=== PATIENT | male | born 1995 | race Caucasian/White ===

== ENCOUNTER 2019-09-20 02:53 | Emergency (ER) | payer SELFPAY ==
[2019-09-20 02:58] VITALS: BP 160/97; PULSE 110; RESP 20; TEMP 36.6; O2SAT 98; BMI 24.2
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
[2019-09-20] MEDS: HYDROcodone-acetaminophen 5-325 mg Tablet 1 TAB PO (03:41)
--- NOTE | 2019-09-20 03:48 | PC.NURSE ---
[facility] department notified at this time and will be sending a deputy out to take a report.
[2019-09-20 04:39] VITALS: PULSE 86; RESP 16; O2SAT 96
== END 2019-09-20 04:40 | disposition home or self-care (01) ==
PROVIDERS: Emergency Provider Emergency Medicine
DX: S01.01XA Laceration without foreign body of scalp, initial encounter (principal); W26.8XXA Contact with other sharp object(s), not elsewhere classified, initial encounter
CPT/HCPCS: 12345; 70450; 99282; 99283

== ENCOUNTER 2020-02-10 11:31 | Emergency (ER) | payer SELFPAY ==
[2020-02-10 12:11] VITALS: BP 129/88; PULSE 97; RESP 14; TEMP 36.8; O2SAT 97; BMI 21.3
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
== END 2020-02-10 12:53 | disposition home or self-care (01) ==
PROVIDERS: Emergency Provider Nurse Practitioner Family
DX: S93.401A Sprain of unspecified ligament of right ankle, initial encounter (principal); S96.911A Strain of unspecified muscle and tendon at ankle and foot level, right foot, initial encounter; X50.1XXA Overexertion from prolonged static or awkward postures, initial encounter
CPT/HCPCS: 12345; 73610; 99281; 99282

== ENCOUNTER 2020-04-30 19:39 | Emergency (ER) | payer SELFPAY ==
[2020-04-30 19:55] VITALS: BP 163/102; PULSE 111; RESP 18; TEMP 36.5; O2SAT 97; BMI 21.3
--- NOTE | 2020-04-30 20:17 | XRR_ITS ---
PROCEDURE INFORMATION: Exam: XR Chest, 2 Views Exam date and time: 04/30/2020 8:35 PM Age: 24 years old Clinical indication: Chest pain; Type not specified; Additional info: Cp, blurred vision TECHNIQUE: Imaging protocol: XR of the chest Views: 2 views. COMPARISON: [place] Chest 1 [place] [id number] 12/07/2017 10:47 PM FINDINGS: Lungs: Unremarkable. No consolidation. Pleural space: Unremarkable. No pleural effusion. No pneumothorax. Heart/Mediastinum: Unremarkable. No cardiomegaly. Bones/joints: Unremarkable. XR/XR chest 2V* [id number] IMPRESSION: No acute findings.
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
[2020-04-30 22:50] VITALS: BP 152/84; PULSE 98; RESP 18; O2SAT 100
== END 2020-04-30 22:51 | disposition home or self-care (01) ==
PROVIDERS: Emergency Provider Physician Assistant
DX: R07.89 Other chest pain (principal)
CPT/HCPCS: 12345; 71046; 99281; 99282

== ENCOUNTER 2024-04-07 16:24 | Emergency (ER) | payer SELFPAY ==
[2024-04-07 16:29] VITALS: BP 129/71; PULSE 106; RESP 17; TEMP 36.3; O2SAT 97; BMI 30.2
--- NOTE | 2024-04-07 16:52 | CTR_ITS ---
PROCEDURE INFORMATION: Exam: CT Lumbar Spine Without Contrast Exam date and time: 04/07/2024 5:34 PM Age: 28 years old Clinical indication: Low back pain; Patient HX: Patient was moving furniture when had a sudden sharp pain in low back causing him to fall hitting head. TECHNIQUE: Imaging protocol: Computed tomography of the lumbar spine without contrast. Radiation optimization: All CT scans at this facility use at least one of these dose optimization techniques: automated exposure control; mA and/or kV adjustment per patient size (includes targeted exams where dose is matched to clinical indication); or iterative reconstruction. COMPARISON: No relevant prior studies available. RADIATION DOSE METRICS: Total DLP (mGy-cm): 714.08 FINDINGS: Bones/joints: No acute fracture. Normal alignment. L1-L2: No significant disc bulge or herniation. No severe spinal canal stenosis. No significant neural foraminal narrowing. L2-L3: No significant disc bulge or herniation. No severe spinal canal stenosis. No significant neural foraminal narrowing. L3-L4: No significant disc bulge or herniation. No severe spinal canal stenosis. No significant neural foraminal narrowing. L4-L5: No significant disc bulge or herniation. No severe spinal canal stenosis. No significant neural foraminal narrowing. L5-S1: No significant disc bulge or herniation. No severe spinal canal stenosis. No significant neural foraminal narrowing. Soft tissues: Unremarkable. CT/CT lumbar spine wo con* [id number] IMPRESSION: Unremarkable spine.
--- NOTE | 2024-04-07 16:54 | CTR_ITS ---
PROCEDURE INFORMATION: Exam: CT Head Without Contrast Exam date and time: 04/07/2024 5:31 PM Age: 28 years old Clinical indication: Injury or trauma; Blunt trauma (contusions or hematomas); Patient HX: Patient was moving furniture when had a sudden sharp pain in low back causing him to fall hitting head. ; Additional info: Head injury TECHNIQUE: Imaging protocol: Computed tomography of the head without contrast. Axial, coronal and sagittal reformatted images were created and reviewed. Radiation optimization: All CT scans at this facility use at least one of these dose optimization techniques: automated exposure control; mA and/or kV adjustment per patient size (includes targeted exams where dose is matched to clinical indication); or iterative reconstruction. COMPARISON: CT head wo con* [id number] 09/20/2019 3:13 AM RADIATION DOSE METRICS: Total DLP (mGy-cm): 1111.28 FINDINGS: Brain: No CT evidence of acute intracranial hemorrhage or acute territorial infarction. No significant mass effect or midline shift. Basal cisterns patent. Cerebral ventricles: Normal in size and configuration. Paranasal sinuses: Mild polypoid ethmoid and inferior frontal sinus mucosal thickening. No air-fluid levels. Mastoid air cells: Grossly unremarkable. Bones: Unremarkable. No acute fracture. Soft tissues: Grossly unremarkable. CT/CT head wo con* [id number]: 1. No CT evidence of acute intracranial pathology. 2. Additional findings, as above.
--- NOTE | 2024-04-07 16:54 | W.ED.BACK ---
HPI - Back Pain/Injury General: Chief Complaint: Back Pain/Injury Stated Complaint: back injury Time Seen by Provider: 04/07/24 16:26 Source: patient Mode of arrival: ambulatory Limitations: no limitations History of Present Illness: 28-year-old male states has been having some low back pain for a month he states that today he was moving furniture and states that he started having severe spasms in his low back and felt like it froze up. He states it hurts to ambulate and is very tender to palpation. He is able to ambulate ambulated the room denies any bowel or bladder incontinence. He states his pain sharp and rates it a 7 out of 10 he states when he had fell when it froze up he did hit his head he has been drinking alcohol today as well. Associated symptoms: Deny abdominal pain, chills, fever(s), nausea or vomiting Related Data Previous Rx's Medication Instructions Recorded methocarbamol 750 mg tablet 750 mg PO Q6H PRN spasms #20 tabs 04/07/24 naproxen 500 mg tablet (Naprosyn) 500 mg PO BID PRN pain #20 tabs 04/07/24 Allergies Allergy/AdvReac Type Severity Reaction Status Date / Time No Known Allergies Allergy Verified 09/20/19 03:02 Review of Systems Const: Denies: fever(s), chills, body aches or change in appetite ENMT: Denies: throat pain or dental pain Card: Denies: chest pain Resp: Denies: dyspnea GI: Denies: abdominal pain, nausea, vomiting or diarrhea Musc: Reports: back pain; Denies: neck pain Skin/Breast: Denies: rash Neuro: Denies: headache(s) Physical Exam Const: COMMON NORMALS: no acute distress, patient oriented x3 and healthy appearing HENMT: COMMON NORMALS: normocephalic and atraumatic HEAD & SCALP: normocephalic and atraumatic Neck/C-Spine: COMMON NORMALS: full ROM and supple Chest: COMMONS NORMALS: normal inspection of the chest Resp: COMMON NORMALS: normal respiratory effort Cardio: COMMON NORMALS: regular rate RATE: regular rate GI: COMMON NORMALS: Normal to inspection, nondistended, normoactive bowel sounds present, Soft to palpation, non-tender and no masses PALPATION: Yes Soft to palpation Extremity: NARRATIVE EXTREMITY EXAM: Paraspinal tenderness to lumbar spine no midline tenderness no saddle anesthesia Neuro: COMMON NORMALS: patient oriented x3, moves all extremities and no focal motor deficits Psych: COMMON NORMALS: mental status grossly normal, Normal thought process present and cooperative THOUGHT PROCESS: Normal thought process present Skin: COMMON NORMALS: no rashes or lesions noted and no wounds GENERAL SKIN EXAM: no rashes or lesions noted Course Vital Signs: Vital signs: Vital Signs Temperature 97.3 F L 04/07/24 16:29 Pulse Rate 98 04/07/24 19:48 Respiratory Rate 16 04/07/24 19:48 Blood Pressure 139/96 04/07/24 19:48 Pulse Oximetry 97 04/07/24 19:48 Oxygen Delivery Me thod Room Air 04/07/24 16:29 MDM - Back Pain/Injury Medical Decision Making Patient presents with back pain is likely lumbar strain he is able ambulate he has no signs of cord compression no signs of epidural abscess imaging here is negative he stable for discharge follow-up with PCP return if worsening. Medical Records I reviewed the patient's medical records. Labs Radiology Impressions Lumbar Spine CT 04/07/24 16:52 IMPRESSION: Unremarkable spine. Head CT 04/07/24 16:[address]: [address] evidence of acute intracranial pathology. 2. Additional findings, as above. All radiology interpretation(s) finalized by discharge Discharge Plan Discharge Patient Disposition: Home Clinical Impression: Low back pain Condition: Stable Prescriptions: New methocarbamol 750 mg tablet 750 mg PO Q6H PRN (Reason: spasms) Qty: 20 0RF naproxen [Naprosyn] 500 mg tablet 500 mg PO BID PRN (Reason: pain) Qty: 20 0RF Discharge Orders: Discharge ED (Routine); Ordered 04/07/24 Ordered By: Bebeto Jansen Referrals: Navid Del Rosario DO [Physician] - 1-3 days Discharge Diet: Advance as tolerated Discharge Activity: Resume usual activity Patient Instructions: Back Pain (ED) Coding Level of Care Code ED Jawbone Puller for Mable Mccallum
[2024-04-07] MEDS: methocarbamol 750 mg Tablet 1500 MG PO (17:20)
[2024-04-07] MEDS: ketorolac 30 mg/mL INJ IVP (17:21)
[2024-04-07] MEDS: dexamethasone 10 mg/mL INJ IVP (17:22)
[2024-04-07 18:25] VITALS: PULSE 97; O2SAT 98
[2024-04-07 19:48] VITALS: BP 139/96; PULSE 98; RESP 16; O2SAT 97
--- NOTE | 2024-04-10 07:33 | DCPLANNER ---
message sent to ortho for er f/u
== END 2024-04-07 19:50 | disposition home or self-care (01) ==
PROVIDERS: Emergency Provider Emergency Medicine
DX: M54.50 Low back pain, unspecified (principal)
CPT/HCPCS: 70450; 72131; 96374; 96375; 99285; J1100; J1885

== ENCOUNTER 2024-07-30 01:35 | Emergency (ER) | payer MEDICAID, SELFPAY ==
[2024-07-30 01:41] VITALS: BP 140/90; PULSE 81; RESP 18; TEMP 36.9; O2SAT 96; BMI 27.2
--- NOTE | 2024-07-30 01:50 | CTR_ITS ---
PROCEDURE INFORMATION: Exam: CT Abdomen And Pelvis With Contrast Exam date and time: 07/30/2024 3:45 AM Age: 28 years old Clinical indication: Abdominal pain; Localized; Right lower quadrant (rlq); C/O worsening rlq pain over last two days. TECHNIQUE: Imaging protocol: Computed tomography of the abdomen and pelvis with contrast. Radiation optimization: All CT scans at this facility use at least one of these dose optimization techniques: automated exposure control; mA and/or kV adjustment per patient size (includes targeted exams where dose is matched to clinical indication); or iterative reconstruction. Contrast material: OMNI 350; Contrast volume: 100 ml; Contrast route: INTRAVENOUS (IV); COMPARISON: CT lumbar spine wo con* [id number] 04/07/2024 5:34 PM RADIATION DOSE METRICS: Total DLP (mGy-cm): 715.8 FINDINGS: Liver: Normal. No mass. Gallbladder and biliary ducts: Normal. No calcified stones. No ductal dilation. Pancreas: Normal. No ductal dilation. Spleen: Splenomegaly. The spleen measures 15.5 cm in craniocaudal dimension. No focal splenic lesion. Adrenal glands: Normal. No mass. Kidneys and ureters: Normal. No hydronephrosis. Stomach and bowel: The small bowel loops are not thickened and are nondilated. The colon is unremarkable. Appendix: The appendix is normal in appearance. No evidence of appendicitis. Intraperitoneal space: Unremarkable. No free air. No significant fluid collection. Vasculature: Unremarkable. No abdominal aortic aneurysm. Lymph nodes: Unremarkable. No enlarged lymph nodes. Urinary bladder: Unremarkable as visualized. Reproductive: Unremarkable as visualized. Bones/joints: No acute osseous lesion. There is a 5 mm annulus disc bulge at L5-S1. Soft tissues: Tiny fat containing periumbilical hernia. CT/CT abdomen pelvis w con* [id number] IMPRESSION: 1. No CT evidence of acute intra-abdominal pathology. 2. Normal appendix. 3. Splenomegaly.
[2024-07-30 02:37] LABS: Basophils # 0.1 10^3/uL (0.0-0.1); Basophils % 0.6 %; Eosinophils # 0.2 10^3/uL (0.0-0.8); Hematocrit 43.7 % (37-53); Lymphocytes # 1.7 10^3/uL (0.8-4.8); Lymphocytes % 21.5 %; Mean Corpuscular HGB Conc 34.6 g/dL (30-55); Mean Corpuscular Hemoglobin 30.5 pg (27-33); Mean Corpuscular Volume 88.3 fl (82-101); Mean Platelet Volume 8.8 fL (7.4-10.4); Monocytes # 0.9 10^3/uL (0.2-0.9); Monocytes % 11.1 %; Neutrophils # 5.07 10^3/uL (1.8-7.7); Neutrophils % 64.7 %; Nucleated Red Blood Cells % 0 %; Platelet Count 230 10^3/cmm (157-399); Red Blood Count 4.95 10^6/uL (3.85-5.65); Red Cell Distribution Width 11.5 % (12.1-15.1); White Blood Count 7.85 10^3/uL (3.29-11.43)
[2024-07-30 02:54] LABS: Alanine Aminotransferase 19 U/L (0-41); Albumin Level 4.3 g/dL (3.5-5.2); Alkaline Phosphatase 69 U/L (40-130); Anion Gap 14.9 (5-19); Aspartate Amino Transferase 20 U/L (0-40); Blood Urea Nitrogen 20 mg/dL (6-20); C Reactive Protein 10.5 mg/L (0.0-4.9); Calcium 9.5 mg/dL (8.5-10.5); Carbon Dioxide 27 mmol/L (22-29); Chloride 103 mmol/L (98-107); Glomerular Filtration Rate 40.3 mL/min (90-130); Glucose 88 mg/dL (65-115); Lipase 23 U/L (13-60); Osmolality Calculated 294 mOsm/kg (285-295); Potassium 3.9 mmol/L (3.5-5.1); Sodium 141 mmol/L (136-145); Total Bilirubin 0.6 mg/dL (0.15-1.2); Total Protein 7.3 g/dL (6.6-8.7)
--- NOTE | 2024-07-30 03:36 | W.ED.ABDPA2 ---
HPI - Abdominal Pain General: Chief Complaint: Abdominal Pain Stated Complaint: low right abd pain food wont stay down 2 days+ Time Seen by Provider: 07/30/24 03:29 History of Present Illness: 28-year-old male with 5 days of lower abdominal pain. He states it is mostly right lower quadrant. Sometimes its left lower quadrant as well. He has had vomiting. No diarrhea. No fever. No history of belly surgery. No change in his urine. Related Data Previous Rx's ?Medication ?Instructions ?Recorded hydroxyzine HCl 25 mg tablet 25 mg PO TID PRN anxiety #30 tabs 06/08/24 buspirone 7.5 mg tablet 7.5 mg PO BID #60 tabs 07/06/24 ketorolac 10 mg tablet 10 mg PO TID PRN pain #10 tabs 07/30/24 ondansetron 4 mg disintegrating 4 mg PO Q6H PRN nausea and 07/30/24 tablet vomiting #14 tabs Allergies Allergy/AdvReac Type Severity Reaction Status Date / Time No Known Allergies Allergy Verified 06/08/24 16:23 [facility] ED PFSH: Social History Smoking and tobacco/nicotine status: current every day tobacco/nicotine user (marijuana and cigerettes) Physical Exam Const: COMMON NORMALS: no acute distress GENERAL APPEARANCE: cooperative; not ill appearing and not frail appearing HENMT: COMMON NORMALS: normocephalic, atraumatic and Normal external nose present HEAD & SCALP: normocephalic and atraumatic FACE & SINUS: normal facial exam and face symmetric NOSE: Normal external nose present Eye: COMMON NORMALS: Equal, round and reactive pupils present and EOMs intact bilaterally PUPIL: Yes Equal, round and reactive pupils present Neck/C-Spine: GENERAL: Yes trachea midline Chest: CHEST: Yes Symmetrical chest wall rise Resp: COMMON NORMALS: normal respiratory effort, No retractions, No use of accessory muscles and clear to auscultation bilaterally AUSCULTATION: clear to auscultation bilaterally Cardio: COMMON NORMALS: regular rate and regular rhythm RATE: regular rate RHYTHM: regular rhythm GI: COMMON NORMALS: Normal to inspection, nondistended, normoactive bowel sounds present and Soft to palpation PALPATION: Yes Soft to palpation and Yes Tenderness to palpation present (GI) Details: RLQ Extremity: COMMON NORMALS: no pedal edema Neuro: JOHNATHAN COMA SCALE: document GCS findings Johnathan coma scale eye opening: Spontaneous [place] coma scale verbal response: Orientated [place] coma scale motor response: Obey commands [place] coma scale total score: 15 SENSORY EXAM: Yes extremities (intact) Psych: COMMON NORMALS: speech normal SPEECH: Yes normal speech Skin: COMMON NORMALS: no rashes or lesions noted GENERAL SKIN EXAM: no rashes or lesions noted Course Vital Signs: Vital signs: Vital Signs Temperature 98.5 F 07/30/24 01:41 Pulse Rate 81 07/30/24 01:41 Respiratory Rate 18 07/30/24 01:41 Blood Pressure 140/90 07/30/24 01:41 Pulse Oximetry 96 07/30/24 01:41 Oxygen Delivery Me thod Room Air 07/30/24 01:41 MDM - Abdominal Pain Medical Decision Making White blood cell count is 7. He is afebrile. CRP is minimally elevated. Creatinine is 2. No prior creatinines for comparison. Lipase is normal. Urinalysis is pending. CT is pending. CT shows a normal appendix. No acute pathology otherwise. Creatinine is 2 which is mildly concerning and will need recheck as an outpatient. He will be discharged home with symptomatic treatment. Lab Data 07/30/24 02:32 07/30/24 02:32 Labs/Radiology: Radiology Impressions Abdomen/Pelvis CT 07/30/24 01:50 IMPRESSION: 1. No CT evidence of acute intra-abdominal pathology. 2. Normal appendix. 3. Splenomegaly. Laboratory Results WBC 7.85 10^3/uL (3.29-11.43) 07/30/24 02:32 RBC 4.95 10^6/uL (3.85-5.65) 07/30/24 02:32 Hgb 15.10 g/dL (11.27-16.99) 07/30/24 02:32 Hct 43.7 % (37-53) 07/30/24 02:32 MCV 88.3 fl (82-101) 07/30/24 02:32 MCH 30.5 pg (27-33) 07/30/24 02:32 MCHC 34.6 g/dL (30-55) 07/30/24 02:32 RDW 11.5 % (12.1-15.1) L 07/30/24 02:32 Plt Count 230 10^3/cmm (157-399) 07/30/24 02:32 MPV 8.8 fL (7.4-10.4) 07/30/24 02:32 Neut % (Auto) 64.7 % 07/30/24 02:32 Lymph % (Auto) 21.5 % 07/30/24 02:32 [place] % (Auto) 11.1 % 07/30/24 02:32 Eos % (Auto) 2.0 % 07/30/24 02:32 Baso % (Auto) 0.6 % 07/30/24 02:32 Neut # (Auto) 5.07 10^3/uL (1.8-7.7) 07/30/24 02:32 Lymph # (Auto) 1.7 10^3/uL (0.8-4.8) 07/30/24 02:32 [place] # (Auto) 0.9 10^3/uL (0.2-0.9) 07/30/24 02:32 Eos # (Auto) 0.2 10^3/uL (0.0-0.8) 07/30/24 02:32 Baso # (Auto) 0.1 10^3/uL (0.0-0.1) 07/30/24 02:32 Nucleated RBC % (auto) 0 % 07/30/24 02:32 Nucleated RBCs # 0.0 /100WBC 07/30/24 02:32 Sodium 141 mmol/L (136-145) 07/30/24 02:32 Potassium 3.9 mmol/L (3.5-5.1) 07/30/24 02:32 Chloride 103 mmol/L (98-107) 07/30/24 02:32 Carbon Dioxide 27 mmol/L (22-29) 07/30/24 02:32 Anion Gap 14.9 (5-19) 07/30/24 02:32 BUN 20 mg/dL (6-20) 07/30/24 02:32 Creatinine 2.0 mg/dL (0.7-1.2) H 07/30/24 02:32 GFR Calculation 40.3 mL/min (90-130) L 07/30/24 02:32 Glucose 88 mg/dL (65-115) 07/30/24 02:32 Calculated Osmolality 294 mOsm/kg (285-295) 07/30/24 02:32 Calcium 9.5 mg/dL (8.5-10.5) 07/30/24 02:32 Total Bilirubin 0.6 mg/dL (0.15-1.2) 07/30/24 02:32 AST 20 U/L (0-40) 07/30/24 02:32 ALT 19 U/L (0-41) 07/30/24 02:32 Alkaline Phosphatase 69 U/L (40-130) 07/30/24 02:32 C-Reactive Protein 10.5 mg/L (0.0-4.9) H 07/30/24 02:32 Total Protein 7.3 g/dL (6.6-8.7) 07/30/24 02:32 Albumin 4.3 g/dL (3.5-5.2) 07/30/24 02:32 Globulin 3.0 g/dL (1.3-4.6) 07/30/24 02:32 Lipase 23 U/L (13-60) 07/30/24 02:32 Urine Color Yellow (Yellow) 07/30/24 04:10 Urine Appearance Clear (CLEAR) 07/30/24 04:10 Urine pH 5 (5-7) 07/30/24 04:10 Ur Specific [place] 1.005 (1.005-1.030) 07/30/24 04:10 Urine Protein 1+ (Negative) H 07/30/24 04:10 Urine Glucose (UA) Norm (Normal) 07/30/24 04:10 Urine Ketones Negative (Negative) 07/30/24 04:10 Urine Blood Neg (Negative) 07/30/24 04:10 Urine Nitrate Negative (Negative) 07/30/24 04:10 Urine Bilirubin Neg (Negative) 07/30/24 04:10 Urine Urobilinogen Norm mg/dL (Negative) 07/30/24 04:10 Ur Leukocyte Esterase Negative (Negative) 07/30/24 04:10 Urine RBC 0-2 /hpf (0-2) 07/30/24 04:10 Urine WBC 0-5 /hpf (0-5) 07/30/24 04:10 Ur Squamous Epith Cells 0-5 /hpf (0-5) 07/30/24 04:10 Amorphous Sediment Not Reportable 07/30/24 04:10 Urine Bacteria None seen /hpf (NONE) 07/30/24 04:10 Hyaline Casts 0.81 /lpf 07/30/24 04:10 All radiology interpretation(s) finalized by discharge Discharge Plan Discharge Patient Disposition: Home Clinical Impression: Abdominal pain, Gastroenteritis Condition: Stable Prescriptions: New ketorolac 10 mg tablet 10 mg PO TID PRN (Reason: pain) Qty: 10 0RF ondansetron 4 mg tablet,disintegrating 4 mg PO Q6H PRN (Reason: nausea and vomiting) Qty: 14 0RF No Action hydroxyzine HCl 25 mg tablet 25 mg PO TID PRN (Reason: anxiety) Qty: 30 0RF buspirone 7.5 mg tablet 7.5 mg PO BID Qty: 60 0RF Discharge Orders: Discharge ED (Routine); Ordered 07/30/24 Ordered By: Lalo Hernandez Referrals: Gary Jasmine DO [Primary Care Provider] - 1-3 days Patient Instructions: Gastroenteritis (ED), Abdominal Pain (ED), Opioid Safety, Pain Management Activity Restrictions/Additional Instructions: Take nausea medication scheduled every 4 hours while awake for the next 24 hours. Follow a liquid diet. Use pain medication as needed. Return for worsening symptoms despite treatment. Call your doctor tomorrow for follow-up appointment. Print Language: German Coding Level of Care Code ED Prehemmer for Mable Mccallum
[2024-07-30] MEDS: ondansetron 2 mg/ML SDV 2 mL 4 MG IVP (03:46)
[2024-07-30] MEDS: sodium chloride 0.9% 1,000 ML 999 ML IV (03:47)
[2024-07-30] MEDS: iohexol 350 mg/mL 500 mL Btl (per mL) IV (03:48)
[2024-07-30] MEDS: ketorolac 30 mg/mL INJ IVP (04:11)
[2024-07-30 04:26] LABS: Bacteria Urine None Seen /hpf; Hyaline Casts Urine 0.81 /lpf; RBC Urine 0-2 /hpf (0-2); Squamous Epithelial Cell Urine 0-5 /hpf (0-5); WBC Urine 0-5 /hpf (0-5)
[2024-07-30 04:30] LABS: Add Urine Microscopic? YES; Bilirubin Urine Neg (Negative); Blood Urine Neg (Negative); Glucose Urine UA Norm (Normal); Ketones Urine Negative (Negative); Leukocyte Esterase Urine Negative (Negative); Nitrate Urine Negative (Negative); Protein Urine 1+ (Negative); Specific Gravity, Urine 1.005 (1.005-1.030); Urine Appearance Clear (CLEAR); Urine Color Yellow (Yellow); Urobilinogen Urine Norm (Negative); pH Urine 5 (5-7)
== END 2024-07-30 06:29 | disposition home or self-care (01) ==
PROVIDERS: Emergency Provider Emergency Medicine; PCP Electrodiagnostic Medicine
DX: R10.9 Unspecified abdominal pain (principal); K52.9 Noninfective gastroenteritis and colitis, unspecified; F17.210 Nicotine dependence, cigarettes, uncomplicated
CPT/HCPCS: 36415; 74177; 80053; 81001; 83690; 85025; 86140; 96361; 96374; 96375; 99285; J1885; J2405; J7030

== ENCOUNTER 2024-10-14 09:56 | Emergency (ER) | payer MEDICAID, SELFPAY ==
[2024-10-14 09:59] VITALS: BP 144/92; PULSE 82; RESP 16; TEMP 36.2; O2SAT 97; BMI 29.8
--- NOTE | 2024-10-14 10:12 | ED_ITS ---
HPI - Alcohol 2 General: Chief Complaint: Alcohol Stated Complaint: blood in stool Time Seen by Provider: 10/14/24 10:07 History of Present Illness: 29-year-old male with a history of alcoh ol abuse who presents to the emergency room with with complaint of alcohol withdrawal. He said he last drank 2 weeks ago. He said about a week he started having withdrawal symptoms. I tried to explain to them that alcohol withdrawal usually occurs within 72 hours of his last drink and that his blood pressure and heart rate are normal which would indicate that he is not having delirium tremens. He says he has been throwing up blood and having blood in his stool and he has not been able to eat anything in over a week. Related Data Previous Rx's ?Medication ?Instructions ?Recorded buspirone 7.5 mg tablet 7.5 mg PO BID #60 tabs 08/10 hydroxyzine HCl 25 mg tablet 25 mg PO Q8H PRN withdraw al 10/14/24 symptoms #30 tabs omeprazole 40 mg capsule,delayed 40 mg PO DAILY #30 ca ps 10/14/24 release ondansetron 4 mg disintegrating 4 mg PO Q8H PRN nausea and 10/14/24 tablet vomiting #10 tabs Allergies Allergy/AdvReac Type Severity Reaction Status Date / Time No Known Allergies Allergy Verified 06/08/24 16:23 Review of Systems 2 Narrative: Constitutional symptoms: Negative except as documented in HPI. Skin symptoms: Negative except as documented in HPI. Eye symptoms: Negative except as documented in HPI. ENMT symptoms: Negative except as documented in HPI. Respiratory symptoms: Negative except as documented in HPI. Cardiovascular symptoms: Negative except as documented in HPI. Gastrointestinal symptoms: Negative except as documented in HPI. Genitourinary symptoms: Negative except as documented in HPI. Musculoskeletal symptoms: Negative except as documented in HPI. Neurologic symptoms: Negative except as documented in HPI. Psychiatric symptoms: Negative except as documented in HPI. Endocrine symptoms: Negative except as documented in HPI. PFSH ED 2 PFSH: Social History Smoking and tobacco/nicotine status: current every day tobacco/nicotine user (marijuana and cigerettes) Physical Exam 2 Narrative: EXAM NARRATIVE: General: Alert, no acute distress. Skin: Warm, dry. Head: Normocephalic, atraumatic. Neck: Supple, trachea midline. Eye: Extraocular movements are intact. Ears, nose, mouth and throat: mucosa moist. Cardiovascular: Regular, Normal peripheral perfusion. Respiratory: Lungs are clear to auscultation, respirations are non-labored, breath sounds are equal, Symmetrical chest wall expansion. Gastrointestinal: Soft, Nontender, Non distended Musculoskeletal: Normal ROM, no deformity. Neurological: Alert and oriented, No focal neurological deficit observed. Psychiatric: Cooperative Course 2 Vital Signs: Vital signs: Vital Signs Temperature 97.1 F L 10/14/24 09:59 Pulse Rate 77 10/14/24 10:15 Respiratory Rate 16 10/14/24 09:59 Blood Pressure 144/92 10/14/24 10:15 Pulse Oximetry 97 10/14/24 10:15 Oxygen Delivery Me thod Room Air 10/14/24 10:15 MDM - Alcohol Medical Decision Making Medical decision making: Differential diagnosis including but not limited to and based on the above HPI, review of systems and physical exam: Patient most likely is not having alcohol withdrawal with normal vitals this far out from my suppose last drink. We will check basic lab work to rule out upper GI bleeding or anemia. Orders placed to evaluate differential diagnosis based on the above differential, HPI and physical exam Lab Review: Laboratory results were reviewed and interpreted by myself the emergency room physician. No leukocytosis. No anemia. No renal failure. No signs of upper GI bleeding or significant rectal bleeding. Alcohol level is negative. I reviewed the patient's medical record. Reexamination: Patient remained stable. No increased work of breathing. No altered mental status. No focal motor deficits. Assessment and plan: Alcohol abuse ?Protonix, Zofran and Ativan in the emergency room. - Discharged home - Discussed plan with patient. Answered any questions. - Evaluation and treatment of this problem were appropriate in the emergency setting. Lab Data 10/14/24 10:30 10/14/24 10:30 Laboratory Results WBC 5.54 10^3/uL (3.29-11.43) 10/14/24 10:30 RBC 5.16 10^6/uL (3.85-5.65) 10/14/24 10:30 Hgb 15.90 g/dL (11.27-16.99) 10/14/24 10:30 Hct 45.1 % (37-53) 10/14/24 10:30 MCV 87.4 fl (82-101) 10/14/24 10:30 MCH 30.8 pg (27-33) 10/14/24 10:30 MCHC 35.3 g/dL (30-55) 10/14/24 10:30 RDW 11.7 % (12.1-15.1) L 10/14/24 10:30 Plt Count 293 10^3/cmm (157-399) 10/14/24 10:30 MPV 9.0 fL (7.4-10.4) 10/14/24 10:30 Neut % (Auto) 59.3 % 10/14/24 10:30 Lymph % (Auto) 31.0 % 10/14/24 10:30 [place] % (Auto) 6.3 % 10/14/24 10:30 Eos % (Auto) 2.3 % 10/14/24 10:30 Baso % (Auto) 0.9 % 10/14/24 10:30 Neut # (Auto) 3.28 10^3/uL (1.8-7.7) 10/14/24 10:30 Lymph # (Auto) 1.7 10^3/uL (0.8-4.8) 10/14/24 10:30 [place] # (Auto) 0.4 10^3/uL (0.2-0.9) 10/14/24 10:30 Eos # (Auto) 0.1 10^3/uL (0.0-0.8) 10/14/24 10:30 Baso # (Auto) 0.1 10^3/uL (0.0-0.1) 10/14/24 10:30 Nucleated RBC % (auto) 0 % 10/14/24 10:30 Nucleated RBCs # 0.0 /100WBC 10/14/24 10:30 Sodium 139 mmol/L (136-145) 10/14/24 10:30 Potassium 3.8 mmol/L (3.5-5.1) 10/14/24 10:30 Chloride 105 mmol/L (98-107) 10/14/24 10:30 Carbon Dioxide 22 mmol/L (22-29) 10/14/24 10:30 Anion Gap 15.8 (5-19) 10/14/24 10:30 BUN 9 mg/dL (6-20) 10/14/24 10:30 Creatinine 1.2 mg/dL (0.7-1.2) 10/14/24 10:30 GFR Calculation 72.1 mL/min (90-130) L 10/14/24 10:30 Glucose 81 mg/dL (65-115) 10/14/24 10:30 Calculated Osmolality 286 mOsm/kg (285-295) 10/14/24 10:30 Calcium 9.2 mg/dL (8.5-10.5) 10/14/24 10:30 Total Bilirubin 0.9 mg/dL (0.15-1.2) 10/14/24 10:30 AST 14 U/L (0-40) 10/14/24 10:30 ALT 19 U/L (0-41) 10/14/24 10:30 Alkaline Phosphatase 66 U/L (40-130) 10/14/24 10:30 Total Protein 6.9 g/dL (6.6-8.7) 10/14/24 10:30 Albumin 4.2 g/dL (3.5-5.2) 10/14/24 10:30 Globulin 2.7 g/dL (1.3-4.6) 10/14/24 10:30 Ethyl Alcohol < 10 mg/dL (0-10) 10/14/24 10:30 No radiology studies performed this visit Discharge Plan Discharge Patient Disposition: Home Clinical Impression: History of alcohol abuse Condition: Stable Prescriptions: New hydroxyzine HCl 25 mg tablet 25 mg PO Q8H PRN (Reason: withdrawal symptoms) Qty: 30 0RF omeprazole 40 mg capsule,delayed release(DR/EC) 40 mg PO DAILY Qty: 30 0RF ondansetron 4 mg tablet,disintegrating 4 mg PO Q8H PRN (Reason: nausea and vomiting) Qty: 10 0RF No Action buspirone 7.5 mg tablet 7.5 mg PO BID Qty: 60 0RF Discharge Orders: Discharge ED (Routine); Ordered 10/14/24 Ordered By: Patricia Estrada Referrals: Gary Jasmine, [Primary Care Provider, Family Practice] Discharge Diet: Usual diet Discharge Activity: Increase activity as tolerated Patient Instructions: Opioid Safety, Pain Management Activity Restrictions/Additional Instructions: Thank you for choosing [facility] for your healthcare needs today. You have been screened and evaluated and felt safe for discharge. Health conditions do change or evolve sometimes and as such it is important that you follow up with your Primary Doctor to be re checked, 3-5 days is a general good time frame for follow up. You are always welcome to return to the ED for re assessment if your symptoms are worsening or you have new concerns Print Language: Yoruba Coding Level of Care Code ED Water Resources Technical Officer for Mable Mccallum
[2024-10-14 10:15] VITALS: BP 144/92; PULSE 77; O2SAT 97
[2024-10-14] MEDS: ondansetron 2 mg/ML SDV 2 mL 4 MG IVP (10:33)
[2024-10-14] MEDS: pantoprazole 40 mg SDV IVP (10:33)
[2024-10-14 10:46] LABS: Basophils # 0.1 10^3/uL (0.0-0.1); Basophils % 0.9 %; Eosinophils # 0.1 10^3/uL (0.0-0.8); Eosinophils % 2.3 %; Hematocrit 45.1 % (37-53); Lymphocytes # 1.7 10^3/uL (0.8-4.8); Mean Corpuscular HGB Conc 35.3 g/dL (30-55); Mean Corpuscular Hemoglobin 30.8 pg (27-33); Mean Corpuscular Volume 87.4 fl (82-101); Monocytes # 0.4 10^3/uL (0.2-0.9); Monocytes % 6.3 %; Neutrophils # 3.28 10^3/uL (1.8-7.7); Neutrophils % 59.3 %; Nucleated Red Blood Cells % 0 %; Platelet Count 293 10^3/cmm (157-399); Red Blood Count 5.16 10^6/uL (3.85-5.65); Red Cell Distribution Width 11.7 % (12.1-15.1); White Blood Count 5.54 10^3/uL (3.29-11.43)
[2024-10-14 11:05] LABS: Alanine Aminotransferase 19 U/L (0-41); Albumin Level 4.2 g/dL (3.5-5.2); Alkaline Phosphatase 66 U/L (40-130); Anion Gap 15.8 (5-19); Aspartate Amino Transferase 14 U/L (0-40); Blood Urea Nitrogen 9 mg/dL (6-20); Calcium 9.2 mg/dL (8.5-10.5); Carbon Dioxide 22 mmol/L (22-29); Chloride 105 mmol/L (98-107); Creatinine Clr Calc Pharmacy 125.1341; Globulin 2.7 g/dL (1.3-4.6); Glomerular Filtration Rate 72.1 mL/min (90-130); Glucose 81 mg/dL (65-115); Osmolality Calculated 286 mOsm/kg (285-295); Potassium 3.8 mmol/L (3.5-5.1); Sodium 139 mmol/L (136-145); Total Bilirubin 0.9 mg/dL (0.15-1.2); Total Protein 6.9 g/dL (6.6-8.7)
[2024-10-14 11:06] LABS: Alcohol Level < 10 mg/dL (0-10)
[2024-10-14] MEDS: LORazepam 1 MG/0.5 ML injection 0.5 MG IVP (11:36)
[2024-10-14 11:56] VITALS: BP 144/92; PULSE 68; O2SAT 98
== END 2024-10-14 11:57 | disposition home or self-care (01) ==
PROVIDERS: Emergency Provider Emergency Medicine; PCP Electrodiagnostic Medicine
DX: F10.11 Alcohol abuse, in remission (principal); Z72.0 Tobacco use
CPT/HCPCS: 80053; 80307; 85025; 96374; 96375; 99284; J2060; J2405; J2470

== ENCOUNTER 2024-10-18 18:54 | Inpatient (IN) | payer MEDICAID, SELFPAY ==
[2024-10-18 18:56] VITALS: BP 159/94; PULSE 90; RESP 18; TEMP 36.9; O2SAT 95; BMI 26.7
--- NOTE | 2024-10-18 18:56 | ECG_ITS ---
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 Measurements Intervals [place] Rate: 59 P: 66 TN: 143 QRS: 109 QRSD: 120 T: 49 QT: 405 QTc: 401 Interpretive Statements SINUS BRADYCARDIA WITH MARKED SINUS ARRHYTHMIA RIGHT AXIS DEVIATION [QRS AXIS > 100] MODERATE INTRAVENTRICULAR CONDUCTION DELAY [110+ ms QRS DURATION] No previous ECG available for comparison Electronically Signed On 10-19-2024 05:59:39 CDT by Meghna Norton M.D. [email or web address]
--- NOTE | 2024-10-18 19:00 | W.ED.PSYCHS ---
HPI - Psych General: Chief Complaint: Psychiatric Symptoms Stated Complaint: SI Time Seen by Provider: 10/18/24 18:55 Source: patient and EMS Mode of arrival: EMS Limitations: no limitations History of Present Illness: 29-year-old male who is here with police EMS for suicidal ideation. States he has been having with his ex- as she will not let him see his children and he is having he states a mental breakdown and having thoughts of suicidality. He denies any worsening. Factors history of alcohol abuse he has had previous psych admissions in the past. Associated symptoms: Reports depression and suicidal ideation Related Data Previous Rx's ?Medication ?Instructions ?Recorded buspirone 7.5 mg tablet 7.5 mg PO BID #60 tabs 08/10/24 hydroxyzine HCl 25 mg tablet 25 mg PO Q8H PRN withdrawal 10/14/24 symptoms #30 tabs omeprazole 40 mg capsule,delayed 40 mg PO DAILY #30 caps 10/14/24 release ondansetron 4 mg disintegrating 4 mg PO Q8H PRN nausea and 10/14/24 tablet vomiting #10 tabs Allergies Allergy/AdvReac Type Severity Reaction Status Date / Time No Known Allergies Allergy Verified 10/18/24 19:02 Review of Systems Const: Denies: fever(s), chills, body aches or change in appetite ENMT: Denies: throat pain or dental pain Card: Denies: chest pain Resp: Denies: dyspnea GI: Denies: abdominal pain, nausea, vomiting or diarrhea Musc: Denies: neck pain or back pain Skin/Breast: Denies: rash Neuro: Denies: headache(s) Psych: Reports: depression and suicidal ideation [facility] PFSH: Social History Smoking and tobacco/nicotine status: current every day tobacco/nicotine user (marijuana and cigerettes) Physical Exam Const: COMMON NORMALS: no acute distress, patient oriented x3 and healthy appearing HENMT: COMMON NORMALS: normocephalic and atraumatic HEAD & SCALP: normocephalic and atraumatic Eye: COMMON NORMALS: conjunctivae normal CONJUNCTIVA: Yes conjunctivae normal Neck/C-Spine: COMMON NORMALS: full ROM and supple Chest: COMMONS NORMALS: normal inspection of the chest Resp: COMMON NORMALS: normal respiratory effort, No retractions, No use of accessory muscles and clear to auscultation bilaterally AUSCULTATION: clear to auscultation bilaterally Cardio: COMMON NORMALS: regular rate, regular rhythm and No murmurs present (Cardio) RATE: regular rate RHYTHM: regular rhythm Extremity: COMMON NORMALS: normal to inspection and full ROM Neuro: COMMON NORMALS: patient oriented x3, moves all extremities and no focal motor deficits Psych: COMMON NORMALS: mental status grossly normal, Normal thought process present and cooperative MOOD & AFFECT: Yes depressed mood THOUGHT PROCESS: Normal thought process present THOUGHT CONTENT: Yes Suicidality present Skin: COMMON NORMALS: no rashes or lesions noted and no wounds GENERAL SKIN EXAM: no rashes or lesions noted Course Vital Signs: Vital signs: Vital Signs Temperature 98.4 F 10/18/24 18:56 Pulse Rate 90 10/18/24 18:56 Respiratory Rate 18 10/18/24 18:56 Blood Pressure 159/94 10/18/24 18:56 Pulse Oximetry 95 10/18/24 18:56 Oxygen Delivery Me thod Room Air 10/18/24 18:56 MDM - Psych Medical Decision Making Patient presents here with suicidal ideations he is medically cleared patient is excepted here I spoke to psychiatrist will admit at this time. Medical Records I reviewed the patient's medical records. Lab Data I reviewed the patient's lab results. 10/18/24 19:32 10/18/24 19:32 Laboratory Results WBC 6.26 10^3/uL (3.29-11.43) 10/18/24 19:32 RBC 4.74 10^6/uL (3.85-5.65) 10/18/24 19:32 Hgb 14.60 g/dL (11.27-16.99) 10/18/24 19:32 Hct 41.3 % (37-53) 10/18/24 19:32 MCV 87.1 fl (82-101) 10/18/24 19:32 MCH 30.8 pg (27-33) 10/18/24 19:32 MCHC 35.4 g/dL (30-55) 10/18/24 19:32 RDW 11.7 % (12.1-15.1) L 10/18/24 19:32 Plt Count 253 10^3/cmm (157-399) 10/18/24 19:32 MPV 9.1 fL (7.4-10.4) 10/18/24 19:32 Neut % (Auto) 60.9 % 10/18/24 19:32 Lymph % (Auto) 27.5 % 10/18/24 19:32 Mercer % (Auto) 8.8 % 10/18/24 19:32 Eos % (Auto) 1.8 % 10/18/24 19:32 Baso % (Auto) 0.8 % 10/18/24 19:32 Neut # (Auto) 3.82 10^3/uL (1.8-7.7) 10/18/24 19:32 Lymph # (Auto) 1.7 10^3/uL (0.8-4.8) 10/18/24 19:32 Mercer # (Auto) 0.6 10^3/uL (0.2-0.9) 10/18/24 19:32 Eos # (Auto) 0.1 10^3/uL (0.0-0.8) 10/18/24 19:32 Baso # (Auto) 0.1 10^3/uL (0.0-0.1) 10/18/24 19:32 Nucleated RBC % (auto) 0 % 10/18/24 19:32 Nucleated RBCs # 0.0 /100WBC 10/18/24 19:32 All radiology interpretation(s) finalized by discharge Discharge Plan Discharge Patient Disposition: Admitted As Inpatient Clinical Impression: Suicidal ideation Condition: Stable Coding Level of Care Code ED [employer] Specialist for Mable Mccallum
[2024-10-18 19:38] LABS: Basophils # 0.1 10^3/uL (0.0-0.1); Basophils % 0.8 %; Eosinophils # 0.1 10^3/uL (0.0-0.8); Eosinophils % 1.8 %; Hematocrit 41.3 % (37-53); Lymphocytes # 1.7 10^3/uL (0.8-4.8); Lymphocytes % 27.5 %; Mean Corpuscular HGB Conc 35.4 g/dL (30-55); Mean Corpuscular Hemoglobin 30.8 pg (27-33); Mean Corpuscular Volume 87.1 fl (82-101); Mean Platelet Volume 9.1 fL (7.4-10.4); Monocytes # 0.6 10^3/uL (0.2-0.9); Monocytes % 8.8 %; Neutrophils # 3.82 10^3/uL (1.8-7.7); Neutrophils % 60.9 %; Nucleated Red Blood Cells % 0 %; Platelet Count 253 10^3/cmm (157-399); Red Blood Count 4.74 10^6/uL (3.85-5.65); Red Cell Distribution Width 11.7 % (12.1-15.1); White Blood Count 6.26 10^3/uL (3.29-11.43)
[2024-10-18 19:58] LABS: Alanine Aminotransferase 25 U/L (0-41); Albumin Level 4.1 g/dL (3.5-5.2); Alkaline Phosphatase 59 U/L (40-130); Anion Gap 14.5 (5-19); Aspartate Amino Transferase 26 U/L (0-40); Blood Urea Nitrogen 10 mg/dL (6-20); Calcium 8.9 mg/dL (8.5-10.5); Carbon Dioxide 23 mmol/L (22-29); Chloride 106 mmol/L (98-107); Creatinine Clr Calc Pharmacy 102.2178; Globulin 2.4 g/dL (1.3-4.6); Glomerular Filtration Rate 60.3 mL/min (90-130); Glucose 91 mg/dL (65-115); Osmolality Calculated 289 mOsm/kg (285-295); Potassium 3.5 mmol/L (3.5-5.1); Sodium 140 mmol/L (136-145); Total Bilirubin 0.5 mg/dL (0.15-1.2); Total Protein 6.5 g/dL (6.6-8.7)
[2024-10-18 20:10] LABS: Acetaminophen < 5.0 ug/mL (10-30); Alcohol Level < 10 mg/dL (0-10); Salicylate < 0.3 mg/dL (3-10)
[2024-10-18 20:27] LABS: Influenza A NEGATIVE (Negative); Influenza B NEGATIVE (Negative); Respiratory Syncytial Virus Ce NEGATIVE (Negative); SARS-CoV-2 PCR NEGATIVE (Negative)
[2024-10-18 21:35] VITALS: BP 138/79; PULSE 78; RESP 16; O2SAT 97
[2024-10-18 21:40] VITALS: BP 141/83; PULSE 61; RESP 18; TEMP 36.6; O2SAT 99
[2024-10-18 21:49] VITALS: BP 141/83; PULSE 61; RESP 18; TEMP 36.6; O2SAT 99
[2024-10-19 06:00] VITALS: PULSE 61; RESP 18; TEMP 36.4; O2SAT 99
--- NOTE | 2024-10-19 06:03 | W.PM.NPUH&PS ---
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 06/21/12 [id number] Select Visit Registration Data Problem List Vital Signs Intake and Output Medications Laboratory Microbiology Reports and Notes ??Close Meds NPU Home Medications ?Medication ?Instructions ?Recorded ?Confirmed ?Last Taken ?Type hydroxyzine HCl 25 mg tablet 25 mg PO Q8H PRN withdrawal 10/14/24 10/19/24 Unknown Rx symptoms #30 tabs omeprazole 40 mg capsule,delayed 40 mg PO DAILY #30 caps 10/14/24 10/19/24 Unknown Rx release ondansetron 4 mg disintegrating 4 mg PO Q8H PRN nausea and 10/14/24 10/19/24 Unknown Rx tablet vomiting #10 tabs Allergies Allergy/AdvReac Type Severity Reaction Status Date / Time No Known Allergies Allergy Verified 10/18/24 19:02 PFSH NPU PFSH: Social History Smoking and tobacco/nicotine status: current every day tobacco/nicotine user (marijuana and cigerettes) Mental Status Exam MSE Comments: This is a tall well-nourished well-developed white male, in hospital scrubs on with adequate grooming and eye contact. No abnormal movements except for psychomotor retardation. Cooperative with exam in mild to moderate distress. Speech was slightly decreased rate and volume. Mood described as depressed and struggling; affect congruent . Thought process, linear and organized. Thought content: patient denied suicidal or homicidal ideation, there were no delusions reported or noted, patient denied any auditory or visual hallucinations. Expressed wanting to hurt himself after his took his child, leading to a breakdown. Experiencing a depressive episode for the first time, feeling low and overwhelmed. Reports increased anxiety since becoming sober, feeling overwhelmed with life responsibilities. Stressors include losing his child, house, job, and car. Describes mood as a lot better today. Attention and concentration appear intact, and memory appear mostly reliable but none were formally tested. He is alert and oriented times 3. Insight and judgment appear fair, impulse control limited. Vitals/I&O/Wt Last Vital Signs Temp 97.8 F 10/18/24 21:49 Pulse 61 10/18/24 21:49 Resp 18 10/18/24 21:49 BP 141/83 10/18/24 21:49 Pulse Ox 99 10/18/24 21:49 O2 Del Method Room Air 10/18/24 21:40 10/18/24 10/18/24 10/19/24 14:59 22:59 06:59 Intake Total 0 / 0 Balance 0 / 0 Weight last 48 hrs Weight 99.79 kg Data NPU 10/18/24 19:32 10/18/24 19:32 A&P Assessment and plan (1) Suicidal ideation: (2) Alcohol use disorder, severe, dependence: (3) Cannabis use disorder, severe, dependence: (4) Methamphetamine use disorder, severe, in sustained remission, dependence: (5) Anxiety: (6) Partner relational problem: (7) Parent-child relational problem: (8) Depression: Plan This is a 29-year-old, white male, with a significant history of addiction and limited treatment but with couple outpatient visits as well as a couple inpatient psychiatric hospitalizations who presents struggling with reports that things have been going poorly starting with a conflict with his that led to this breakdown. Mike is experiencing a significant depressive episode, characterized by feelings of being overwhelmed and having thoughts of self-harm. This episode appears to be triggered by recent life stressors, including the separation from his and the inability to see his child for a month. He has a history of substance use, including alcohol and methamphetamine, but has been sober for three weeks. Mike has expressed a desire to engage in therapy and anger management classes to address his current mental health challenges. RECOMMENDATION AND PLAN: 1. Continue current medication. But he is not necessarily wanting to start psychiatric medication currently. 2. Encourage individual, group, and milieu therapy. 3. Continue every 15 minute checks for safety. 4. Encourage sober living treatment after discharge at the highest level care to which he is willing to commit. 5. Obtain collateral information. 6. Observe against the backdrop of 96-hour hold. PDMP PDMP Reviewed: Not Reviewed Involuntary Hold Information Hold Status: Legal Status: 96 Hour Hold Date/Time Hold Expires: 10/25/24@18:54 Attestations U Medical Necessity Statement*: Inpatient hospitalization is medically necessary and the clinically appropriate intervention, at this time. We will monitor medications and make changes as indicated. Patient will be in the psychiatric hospital for over two midnights. His likely length of stay is 2-4 days. Coding Level of Care Code Acute Code for [facility] Fwd Diagnoses Suicidal ideation R45.851 Alcohol use disorder, severe, dependence F10.20 Cannabis use disorder, severe, dependence F12.20 Methamphetamine use disorder, severe, in sustained remission, dependence F15.21 Anxiety F41.9 Partner relational problem Z63.0 Parent-child relational problem Z62.820 Depression F32.A
[2024-10-19 11:10] LABS: Amphetamines Screen Urine Negative (Negative); Barbiturates Screen Urine Negative (Negative); Benzodiazepines Screen Urine Negative (Negative); Cocaine Screen Urine Negative (Negative); Opiate Screen Urine Negative (Negative); PCP Screen Urine Negative (Negative); THC Screen Urine Positive (Negative)
[2024-10-19 14:00] VITALS: BP 119/72; PULSE 54; RESP 18; TEMP 36.3; O2SAT 96
[2024-10-19] MEDS: nicotine 2 mg Gum BUCCAL ×2 (16:38→21:39)
[2024-10-19] MEDS: nicotine 4 mg lozenge MUCOUS MEM (18:42)
[2024-10-19 20:14] VITALS: BP 130/80; PULSE 70; RESP 18; TEMP 36.3; O2SAT 99
[2024-10-19] MEDS: OLANZapine 5 mg ODT PO (22:57)
[2024-10-20 06:00] VITALS: BP 110/56; PULSE 58; RESP 17; TEMP 36.4; O2SAT 98
[2024-10-20 14:00] VITALS: BP 114/63; PULSE 56; RESP 18; TEMP 36.3; O2SAT 98
[2024-10-20] MEDS: nicotine 2 mg Gum BUCCAL ×2 (17:55→20:54)
--- NOTE | 2024-10-20 18:23 | P.NPUPN_ITS ---
Subjective NPU 2 Subjective: Patient presented today reporting that he is really wanting to get out of here and get back to work. We discussed the importance of us identifying whether or not he is in need of additional assistance or whether this did represent a poor judgment and breakdown just related to the exposure to his home environment again with sadness and thoughts about not seeing his child. We discussed that we would get the collateral information and then make some decisions about the timeframe to discharge. Continues to deny a desire to restart medication. Mental Status Exam 2 MSE Comments: This is a tall well-nourished well-developed white male, in hospital scrubs on with adequate grooming and eye contact. No abnormal movements except for psychomotor retardation. Cooperative with exam in mild to moderate distress. Speech was slightly decreased rate and volume. Mood described as depressed and struggling; affect congruent . Thought process, linear and organized. Thought content: patient denied suicidal or homicidal ideation, there were no delusions reported or noted, patient denied any auditory or visual hallucinations. Expressed wanting to hurt himself after his took his child, leading to a breakdown. Experiencing a depressive episode for the first time, feeling low and overwhelmed. Reports increased anxiety since becoming sober, feeling overwhelmed with life responsibilities. Stressors include losing his child, house, job, and car. Describes mood as a lot better today. Attention and concentration appear intact, and memory appear mostly reliable but none were formally tested. He is alert and oriented times 3. Insight and judgment appear fair, impulse control limited. Vitals/I&O/Wt Last Vital Signs Temp 97.5 F L 10/20/24 22:00 Pulse 63 10/20/24 22:00 Resp 19 H 10/20/24 22:00 BP 136/90 10/20/24 22:00 Pulse Ox 100 10/20/24 22:00 O2 Del Method Room Air 10/20/24 22:00 Data NPU 10/18/24 19:32 10/18/24 19:32 A&P Assessment and plan (1) Suicidal ideation: (2) Alcohol use disorder, severe, dependence: (3) Cannabis use disorder, severe, dependence: (4) Methamphetamine use disorder, severe, in sustained remission, dependence: (5) Anxiety: (6) Partner relational problem: (7) Parent-child relational problem: (8) Depression: Plan This is a 29-year-old, white male, with a significant history of addiction and limited treatment but with couple outpatient visits as well as a couple inpatient psychiatric hospitalizations who presents struggling with reports that things have been going poorly starting with a conflict with his that led to this breakdown. Mike is experiencing a significant depressive episode, characterized by feelings of being overwhelmed and having thoughts of self-harm. This episode appears to be triggered by recent life stressors, including the separation from his and the inability to see his child for a month. He has a history of substance use, including alcohol and methamphetamine, but has been sober for three weeks. Mike has expressed a desire to engage in therapy and anger management classes to address his current mental health challenges. RECOMMENDATION AND PLAN: 1. Continue current medication. But he is not necessarily wanting to start psychiatric medication currently. 2. Encourage individual, group, and milieu therapy. 3. Continue every 15 minute checks for safety. 4. Encourage sober living treatment after discharge at the highest level care to which he is willing to commit. 5. Obtain collateral information. Given the aggression that he demonstrated upon admission we will reach out to brother and family and may be some people at more the life to identify whether they feel this was a momentary lapse in judgment or a decompensation from recent behavior. 6. Observe against the backdrop of 96-hour hold. PDMP PDMP Reviewed: Not Reviewed Involuntary Hold Information 2 Hold Status: Legal Status: 96 Hour Hold Date/Time Hold Expires: 0 10/25/24@18:54 Attestations NPU 2 Medical Necessity Statement*: Inpatient hospitalization is medically necessary and the clinically appropriate intervention, at this time. We will monitor medications and make changes as indicated. Patient will be in the psychiatric hospital for over two midnights. His likely length of stay is 1-3 days. Coding Level of Care Code Acute Code for [facility] Fwd Diagnoses Suicidal ideation R45.851 Alcohol use disorder, severe, dependence F10.20 Cannabis use disorder, severe, dependence F12.20 Methamphetamine use disorder, severe, in sustained remission, dependence F15.21 Anxiety F41.9 Partner relational problem Z63.0 Parent-child relational problem Z62.820 Depression F32.A
[2024-10-20] MEDS: hyDROXYzine 25 mg Capsule 50 MG PO (20:49)
[2024-10-20] MEDS: trazodone 50 mg Tablet PO ×2 (20:49→22:00)
[2024-10-20 22:00] VITALS: BP 136/90; PULSE 63; RESP 19; TEMP 36.4; O2SAT 100
[2024-10-21 06:00] VITALS: BP 101/58; PULSE 65; RESP 17; TEMP 37.2; O2SAT 98
[2024-10-21] MEDS: nicotine 2 mg Gum BUCCAL ×2 (11:39→16:57)
[2024-10-21 14:00] VITALS: BP 121/76; PULSE 56; RESP 16; TEMP 36.7; O2SAT 99
--- NOTE | 2024-10-21 18:30 | P.NPUPN_ITS ---
Subjective NPU 2 Subjective: Patient presents today reporting that things are decent overall. He reports feeling better and excepting that he cannot control the situation with his ex or his son right now and that the most important thing is for him to focus on his recovery and being the best version of himself and that the other things will take care of themselves. [facility] and has his medication management services already in place as far as appointments. We discussed getting some collateral information and considering discharge tomorrow. He denied any side effects of medication. Mental Status Exam 2 MSE Comments: This is a tall well-nourished well-developed white male, in hospital scrubs on with adequate grooming and eye contact. No abnormal movements except for psychomotor retardation. Cooperative with exam in mild to moderate distress. Speech was slightly decreased rate and volume. Mood described as better; affect congruent . Thought process, linear and organized. Thought content: patient denied suicidal or homicidal ideation, there were no delusions reported or noted, patient denied any auditory or visual hallucinations. Attention and concentration appear intact, and memory appear mostly reliable but none were formally tested. He is alert and oriented times 3. Insight and judgment appear fair, impulse control limited. Vitals/I&O/Wt Last Vital Signs Temp 98.0 F 10/21/24 14:00 Pulse 56 L 10/21/24 14:00 Resp 16 10/21/24 14:00 BP 121/76 10/21/24 14:00 Pulse Ox 99 10/21/24 14:00 O2 Del Method Room Air 10/21/24 14:00 Weight last 48 hrs Weight 100.414 kg Data NPU 10/18/24 19:32 10/18/24 19:32 A&P Assessment and plan (1) Suicidal ideation: (2) Alcohol use disorder, severe, dependence: (3) Cannabis use disorder, severe, dependence: (4) Methamphetamine use disorder, severe, in sustained remission, dependence: (5) Anxiety: (6) Partner relational problem: (7) Parent-child relational problem: (8) Depression: Plan This is a 29-year-old, white male, with a significant history of addiction and limited treatment but with couple outpatient visits as well as a couple inpatient psychiatric hospitalizations who presents struggling with reports that things have been going poorly starting with a conflict with his that led to this breakdown. Mike is experiencing a significant depressive episode, characterized by feelings of being overwhelmed and having thoughts of self-harm. This episode appears to be triggered by recent life stressors, including the separation from his and the inability to see his child for a month. He has a history of substance use, including alcohol and methamphetamine, but has been sober for three weeks. Mike has expressed a desire to engage in therapy and anger management classes to address his current mental health challenges. RECOMMENDATION AND PLAN: 1. Continue current medication. But he is not necessarily wanting to start psychiatric medication currently. 2. Encourage individual, group, and milieu therapy. 3. Continue every 15 minute checks for safety. 4. Encourage sober living treatment after discharge at the highest level care to which he is willing to commit. 5. Obtain collateral information. Given the aggression that he demonstrated upon admission we will reach out to brother and family and may be some people at more the [facility] to identify whether they feel this was a momentary lapse in judgment or a decompensation from recent behavior. 6. Observe against the backdrop of 96-hour hold. PDMP PDMP Reviewed: Not Reviewed Involuntary Hold Information 2 Hold Status: Legal Status: 96 Hour Hold Date/Time Hold Expires: 0 10/25/24@18:54 Attestations NPU 2 Medical Necessity Statement*: Inpatient hospitalization is medically necessary and the clinically appropriate intervention, at this time. We will monitor medications and make changes as indicated. Patient will be in the psychiatric hospital for over two midnights. His likely length of stay is 1-3 days. Coding Level of Care Code Acute Code for [facility] Fwd Diagnoses Suicidal ideation R45.851 Alcohol use disorder, severe, dependence F10.20 Cannabis use disorder, severe, dependence F12.20 Methamphetamine use disorder, severe, in sustained remission, dependence F15.21 Anxiety F41.9 Partner relational problem Z63.0 Parent-child relational problem Z62.820 Depression F32.A
[2024-10-21 20:38] VITALS: BP 137/86; PULSE 76; RESP 20; TEMP 36.7; O2SAT 99
[2024-10-21] MEDS: hyDROXYzine 25 mg Capsule 50 MG PO (20:57)
[2024-10-21] MEDS: trazodone 50 mg Tablet PO ×2 (20:57→23:51)
[2024-10-21] MEDS: nicotine 4 mg lozenge MUCOUS MEM (21:01)
[2024-10-22 00:41] VITALS: BMI 26.9
[2024-10-22 06:00] VITALS: BP 110/69; PULSE 63; RESP 16; TEMP 36.5; O2SAT 98
[2024-10-22] MEDS: nicotine 2 mg Gum BUCCAL (12:12)
--- NOTE | 2024-10-22 12:20 | P.NPUDS_ITS ---
Diagnoses at Discharge Discharge Diagnosis (1) Suicidal ideation: Status: Acute (2) Alcohol use disorder, severe, dependence: Status: Acute (3) Cannabis use disorder, severe, dependence: Status: Acute (4) Methamphetamine use disorder, severe, in sustained remission, dependence: Status: Acute (5) Anxiety: Status: Acute (6) Partner relational problem: Status: Acute (7) Parent-child relational problem: Status: Acute (8) Depression: Status: Acute Reason for Visit Reason for Visit: SI Involuntary Hold Information Hold Status: Legal Status: 96 Hour Hold Date/Time Hold Expires: 10/25/24@18:54 Mental Status Exam MSE Comments: This is a tall well-nourished well-developed white male, in hospital scrubs on with adequate grooming and eye contact. No abnormal movements except for psychomotor retardation. Cooperative with exam in mild to moderate distress. Speech was slightly decreased rate and volume. Mood described as better; affect congruent . Thought process, linear and organized. Thought content: patient denied suicidal or homicidal ideation, there were no delusions reported or noted, patient denied any auditory or visual hallucinations. Attention and concentration appear intact, and memory appear mostly reliable but none were formally tested. He is alert and oriented times 3. Insight and judgment appear fair, impulse control limited. Discharge Data Studies Completed and Pending: Laboratory Results WBC 6.26 10^3/uL (3.2 9-11.43) 10/18/24 19:32 RBC 4.74 10^6/uL (3.8 5-5.65) 10/18/24 19:32 Hgb 14.60 g/dL (11.27 -16.99) 10/18/24 19:32 Hct 41.3 % (37-53) 10/18/24 19:32 MCV 87.1 fl (82-101) 10/18/24 19:32 MCH 30.8 pg (27-33) 10/18/24 19:32 MCHC 35.4 g/dL (30-55) 10/18/24 19:32 RDW 11.7 % (12.1-15.1 ) L 10/18/24 19:32 Plt Count 253 10^3/cmm (157 -399) 10/18/24 19:32 MPV 9.1 fL (7.4-10.4) 10/18/24 19:32 Neut % (Auto) 60.9 % 10/18/24 19:32 Lymph % (Auto) 27.5 % 10/18/24 19:32 [place] % (Auto) 8.8 % 10/18/24 19:32 Eos % (Auto) 1.8 % 10/18/24 19:32 Baso % (Auto) 0.8 % 10/18/24 19:32 Neut # (Auto) 3.82 10^3/uL (1.8 -7.7) 10/18/24 19:32 Lymph # (Auto) 1.7 10^3/uL (0.8- 4.8) 10/18/24 19:32 [place] # (Auto) 0.6 10^3/uL (0.2- 0.9) 10/18/24 19:32 Eos # (Auto) 0.1 10^3/uL (0.0- 0.8) 10/18/24 19:32 Baso # (Auto) 0.1 10^3/uL (0.0- 0.1) 10/18/24 19:32 Nucleated RBC % (a uto) 0 % 10/18/24 19:32 Nucleated RBCs # 0.0 /100WBC 10/18/24 19:32 Sodium 140 mmol/L (136-1 45) 10/18/24 19:32 Potassium 3.5 mmol/L (3.5-5 .1) 10/18/24 19:32 Chloride 106 mmol/L (98-10 7) 10/18/24 19:32 Carbon Dioxide 23 mmol/L (22-29) 10/18/24 19:32 Anion Gap 14.5 (5-19) 10/18/24 19:32 BUN 10 mg/dL (6-20) 10/18/24 19:32 Creatinine 1.4 mg/dL (0.7-1. 2) H 10/18/24 19:32 GFR Calculation 60.3 mL/min (90-1 30) L 10/18/24 19:32 Glucose 91 mg/dL (65-115) 10/18/24 19:32 Calculated Osmolal ity 289 mOsm/kg (285- 295) 10/18/24 19:32 Calcium 8.9 mg/dL (8.5-10 .5) 10/18/24 19:32 Total Bilirubin 0.5 mg/dL (0.15-1 .2) 10/18/24 19: AST 26 U/L (0-40) 10/18/24: ALT 25 U/L (0-41) 10/18/24 19: Alkaline Phosphata se 59 U/L (40-130) 10/18/24 19: Total Protein 6.5 g/dL (6.6-8.7 ) L 10/18/24 19: Albumin 4.1 g/dL (3.5-5.2 ) 10/18/24 19: Globulin 2.4 g/dL (1.3-4.6 ) 10/18/24: Salicylates < 0.3 mg/dL (3-10 ) L 10/18/24 19:32 Urine Opiates Scre en Negative ng/mL (N egative) 10/19/24 10:35 Acetaminophen < 5.0 ug/mL (10-3 0) L 10/18/24 19:32 Ur Barbiturates Sc reen Negative ng/mL (N egative) 10/19/24 10:35 Ur Phencyclidine S crn Negative ng/mL (N egative) 10/19/24 10:35 Ur Amphetamines Sc reen Negative ng/mL (N egative) 10/19/24 10:35 U Benzodiazepines Scrn Negative ng/mL (N egative) 10/19/24 10:35 Urine Cocaine Scre en Negative ng/mL (N egative) 10/19/24 10:35 U Marijuana (THC) Screen Positive ng/mL (N egative) H 10/19/24 10:35 Ethyl Alcohol < 10 mg/dL (0-10) 10/18/24 19: Influenza A (PCR) Negative (Negati ve) 10/18/24 19: Influenza Type B ( PCR) Negative (Negati ve) 10/18/24 19: RSV (PCR) Negative (Negati ve) 10/18/24 19: SARS-CoV-2 (PCR) Negative (Negati ve) 10/18/24 19:25 Vitals: Last Vital Signs Temp 97.7 F 10/22/24 06:00 Pulse 63 10/22/24 06:00 Resp 16 10/22/24 06:00 BP 110/69 10/22/24 06:00 Pulse Ox 98 10/22/24 06:00 O2 Del Method Room Air 10/22/24 06:00 Discharge Plan Discharge Patient Disposition: Home Condition: Stable Prescriptions: Continued hydroxyzine HCl 25 mg tablet 25 mg PO Q8H PRN (Reason: withdrawal symptoms) Qty: 30 0RF omeprazole 40 mg capsule,delayed release(DR/EC) 40 mg PO DAILY Qty: 30 0RF ondansetron 4 mg tablet,disintegrating 4 mg PO Q8H PRN (Reason: nausea and vomiting) Qty: 10 0RF Discharge Orders: Discharge Order (Routine); Ordered 10/22/24 Ordered By: Sven Strong Referrals: [facility] [Other] Gary Jasmine DO [Primary Care Provider, [facility]] Discharge Diet: Regular Discharge Activity: Resume usual activity Patient Instructions: Opioid Safety Discharge Attestations NPU Time Spent in Discharge Care*: less than 30 min Specific Discharge Activities: Specific discharge activities: educating patient, discussing with case work aide/social workers/dc planners, documenting/other paperwork and evaluating patient/reviewing data Coding Level of Care Code Acute Code for g Fwd Diagnoses Suicidal ideation R45.851 Alcohol use disorder, severe, dependence F10.20 Cannabis use disorder, severe, dependence F12.20 Methamphetamine use disorder, severe, in sustained remission, dependence F15.21 Anxiety F41.9 Partner relational problem Z63.0 Parent-child relational problem Z62.820 Depression F32.A
[2024-10-22 12:29] VITALS: BP 110/69; PULSE 63; RESP 16; TEMP 36.5; O2SAT 98
== END 2024-10-22 12:46 | disposition home or self-care (01) | DRG 881 ==
LOC: ER 20:47 → NP 21:09
PROVIDERS: Admitting Provider Psychiatry & Neurology Psychiatry; Emergency Provider Emergency Medicine; PCP Electrodiagnostic Medicine; Visit Provider Psychiatry & Neurology Psychiatry
DX: F32.A Depression, unspecified (principal); R45.851 Suicidal ideations; F10.20 Alcohol dependence, uncomplicated; F12.20 Cannabis dependence, uncomplicated; F15.21 Other stimulant dependence, in remission; F41.9 Anxiety disorder, unspecified; Z63.0 Problems in relationship with spouse or partner; F17.210 Nicotine dependence, cigarettes, uncomplicated
CPT/HCPCS: 36415; 80053; 80306; 80307; 85025; 87637; 93005; 97165; 99285; J9999

== ENCOUNTER 2025-02-01 14:34 | Emergency (ER) | payer SELFPAY ==
--- OUTSIDE RECORDS SUMMARY | 2025-02-01 14:40 | XMS_ITS | Clinical Summary ---
Author Organization [facility] Address [address] [place] [id number] Care Team Providers Care Gang Investigator Name Role Phone Unavailable Primary Care Provider Unavailabl e Social History Tobacco Use Types Packs/Day Years Used Date Smoking Tobacco: Former Cigarettes Smokeless Tobacco: Former Tobacco Cessation:Counseling Given: Not Answered Alcohol Use Standard Drinks/Week Comments Yes 0 (1 standard drink = 0.6 oz pur e alcohol) daily shots Alcohol Use Answer Date Recorded Frequency of Alcohol Consumption Not on file 09/26/2024 Average Number of Drinks Not on file 025 Frequency of Binge Drinking Not on file 09/01 Alcohol Use Status Yes 09/26/2024 Average alcohol consumption Not on file 09/01 Sex and Gender Information Value Date Recorded Sex Assigned at Not on file Legal Sex Male 9:20 AM CDT Gender Identity Not on file Sexual Orientation Not on file Last Filed Vital Signs Vital Sign Reading Time Taken Comments Blood Pressure 142/80 09/26/2024 8:39 AM CDT Pulse 88 09/26/2024 8:39 AM CDT Temperature 36.7 C (98 F) 09/26/2024 8:39 AM CDT Respiratory Rate 18 09/26/2024 8:39 AM CDT Oxygen Saturation 98% 09/26/2024 8:39 AM CDT Inhaled Oxygen Concentration - - Weight 104.1 kg (229 lb 6.4 oz) 09/26/2024 8:39 AM CDT Height 190.5 cm (6' 3 ) 09/18/2024 7:20 AM CDT Body Mass Index 28.67 09/18/2024 7:20 AM CDT Plan of Treatment Health Maintenance Due Date Last Done Comments HIV Screening 1996 Hepatitis C Screening ages 1 8 to 79 once 1996 MMR VACCINES (1 of 1 - Stand larisa series) 1997 YEARLY WELLNESS EXAM 09/21/1999 DTaP/Tdap/Td Vaccines (1 - Tdap) 09/21/2003 DEPRESSION SCREENING 2008 Varicella Vaccine (1 of 2 - 13+ 2-dose series) 2009 HPV VACCINES (1 - Male 3-dos e series) 09/21/2011 BMI Above/Below Normal Parameters 2014 ADULT TETANUS 09/21/2015 HEPATITIS B VACCINES (1 of 3 - 19+ 3-dose series) 09/21/2015 Influenza Vaccine 12/01/2024 COVID-19 Immunization (1 - 2 024-25 season) 2025 Zoster Vaccine (Recombinant Vaccine) (1 of 2) 2046 HEPATITIS A VACCINES Aged Out No long er eligible based on patient's age to complete this topic HIB VACCINES Aged Out No longer eligi ble based on patient's age to complete this topic IPV VACCINES Aged Out No longer eligi ble based on patient's age to complete this topic MENINGOCOCCAL VACCINE Aged Out No raul akhil eligible based on patient's age to complete this topic Meningococcal B Vaccine Aged Out No l onger eligible based on patient's age to complete this topic Pneumococcal Vaccine: Peds t o 50 & At-Risk Patients Aged Out No longer eligible b ased on patient's age to complete this topic ROTAVIRUS VACCINES Aged Out No longer eligible based on patient's age to complete this topic Insurance [employer]
[2025-02-01 14:57] VITALS: BP 121/79; PULSE 72; RESP 17; TEMP 36.8; O2SAT 100; BMI 27.2
--- NOTE | 2025-02-01 15:10 | XRR_ITS ---
PROCEDURE INFORMATION: Exam: XR Right Hand Exam date and time: 02/01/2025 3:24 PM Age: 29 years old Clinical indication: Injury or trauma; Other: Laceration; Hand and finger; Right; Thumb; Additional info: Right thumb lac TECHNIQUE: Imaging protocol: Radiologic exam of the right hand. Views: 3 or more views. COMPARISON: No relevant prior studies available. FINDINGS: Bones/joints: No acute fractures. No dislocations. No significant osseous lesions. Soft tissues: No significant soft tissue abnormalities. No radiopaque foreign bodies. XR/XR hand RT min 3V* [id number] IMPRESSION: 1. No acute fractures or malalignment. 2. No radiopaque foreign bodies.
--- NOTE | 2025-02-01 16:41 | W.ED.WOUNDLC ---
HPI - Wound/Laceration General: Chief Complaint: Wound/Laceration Stated Complaint: Rt thumb partial detachment Time Seen by Provider: 02/01/25 15:55 Source: patient Mode of arrival: ambulatory Limitations: no limitations History of Present Illness: Patient is a 29-year-old male who presents to the Emergency Department complaining of laceration right thumb. States that he was cutting a piece of sheet metal when it slipped, he is concerned that there may be a piece still stuck in there. Tetanus not up-to-date. Bleeding controlled on arrival. States he took ibuprofen for the pain, pain control at this time. No active bleeding. No neurovascular symptoms. Extremity Location: Right: hand Patient tetanus UTD: No Context: accidental Associated symptoms: Denies chills, fever(s), nausea or vomiting Related Data Previous Rx's ?Medication ?Instructions ?Recorded hydroxyzine HCl 25 mg tablet 25 mg PO Q8H PRN withdrawal 10/14/24 symptoms #30 tabs omeprazole 40 mg capsule,delayed 40 mg PO DAILY #30 caps 10/14/24 release ondansetron 4 mg disintegrating 4 mg PO Q8H PRN nausea and 10/14/24 tablet vomiting #10 tabs cephalexin 500 mg capsule 500 mg PO Q6H 5 days #20 caps 02/01/25 Allergies Allergy/AdvReac Type Severity Reaction Status Date / Time No Known Allergies Allergy Verified 11/01/24 11:28 Review of Systems General: Reports: 10 or more systems reviewed and unremarkable except in HPI and below Const: Denies: fever(s) or chills Card: Denies: chest pain Resp: Denies: dyspnea GI: Denies: abdominal pain, nausea, vomiting or diarrhea Musc: Denies: extremity pain or joint pain Skin/Breast: Reports: new lesions (Laceration right thumb); Denies: rash, skin pain or skin tenderness Neuro: Denies: headache(s) PFSH ED PFSH: Medical History Psychiatric care Social History Smoking and tobacco/nicotine status: current every day tobacco/nicotine user (marijuana and cigerettes) Physical Exam Const: COMMON NORMALS: no acute distress, average body habitus, patient oriented x3, no limitations, healthy appearing, alert and well nourished HENMT: COMMON NORMALS: normocephalic and atraumatic HEAD & SCALP: normocephalic and atraumatic Neck/C-Spine: COMMON NORMALS: full ROM, no lymphadenopathy, supple and no meningeal signs Extremity: COMMON NORMALS: full ROM and capillary refill normal Neuro: COMMON NORMALS: patient oriented x3, moves all extremities, no focal motor deficits and no sensory deficits noted SENSORIUM/ORIENTATION: Yes alert MENINGEAL SIGNS: Yes no meningeal signs Skin: COMMON NORMALS: turgor normal NARRATIVE SKIN EXAM: To base of right thumb to palmar aspect, 3 cm laceration with no active bleeding, superficial. GENERAL SKIN EXAM: turgor normal Procedures Laceration Laceration 1: Site: hand Side (If applicable): right (Proximal thumb/palm) Size (cm): 3 Description: linear and clean Depth: simple, single layer Local Anesthetic: lidocaine 2% and with epi Amount of anesthesia used (mL): 3 Pre-repair: wound explored, irrigated extensively and deep structures intact Skin layer closed with: nylon Size (cm): 5-0 Number of sutures: 6 Technique: simple, interrupted Course Vital Signs: Vital signs: Vital Signs Temperature 98.3 F 02/01/25 14:57 Pulse Rate 72 02/01/25 14:57 Respiratory Rate 17 02/01/25 14:57 Blood Pressure 121/79 02/01/25 14:57 Pulse Oximetry 100 02/01/25 14:57 Oxygen Delivery Me thod Room Air 02/01/25 14:57 MDM - Wound/Laceration Medical Decision Making Patient had laceration to base of right thumb after cutting on sheet-metal, his tetanus was updated today. X-ray negative for any bony findings or retained foreign body. Laceration was repaired, see the procedure note. He will be started on antibiotics and wound care discussed and return precautions given. Lab Data Radiology Impressions Hand X-Ray 02/01/25 15:10 IMPRESSION: 1. No acute fractures or malalignment. 2. No radiopaque foreign bodies. All radiology interpretation(s) finalized by discharge Discharge Plan Discharge Patient Disposition: Home Clinical Impression: Laceration of right thumb Qualifiers: Encounter type: initial encounter Damage to nail status: without damage Foreign body presence: without foreign body Qualified Code(s): S61.011A - Laceration without foreign body of right thumb without damage to nail, initial encounter Condition: Stable Prescriptions: New cephalexin 500 mg capsule 500 mg PO Q6H 5 Days Qty: 20 0RF No Action hydroxyzine HCl 25 mg tablet 25 mg PO Q8H PRN (Reason: withdrawal symptoms) Qty: 30 0RF omeprazole 40 mg capsule,delayed release(DR/EC) 40 mg PO DAILY Qty: 30 0RF ondansetron 4 mg tablet,disintegrating 4 mg PO Q8H PRN (Reason: nausea and vomiting) Qty: 10 0RF Discharge Orders: Discharge ED (Routine); Ordered 02/01/25 Ordered By: Clifford Dougherty Referrals: Gary Jasmine DO [Primary Care Provider, Family Practice] Patient Instructions: Patient Portal & Rajwinder Instructions Activity Restrictions/Additional Instructions: Motrin and Tylenol for pain, may use the [place] for breakthrough pain. Your tetanus was updated today. Please have the sutures removed in 5 to 7 days with primary care. Take the antibiotics as prescribed/directed. Clean area with mild soap and water, return for any concerning signs of infection. 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
[2025-02-01] MEDS: lidocaine-epi 2% 20 mL INJ INJECTION (16:51)
[2025-02-01] MEDS: tetanus-dipt-pertussis 0.5 mL SDV IM (16:52)
--- NOTE | 2025-02-01 17:12 | PC.NURSE ---
Pt wound cleansed and irrigated with 300cc of NS. bleeding controlled at this time. LAceration well approximated with adipose tissue expose. This nurse noted no bone exposure upon assessment. Pt tolerated well.
[2025-02-01] MEDS: HYDROcodone-acetaminophen 7.5-325 mg Tablet 2 TAB PO (18:09)
== END 2025-02-01 18:12 | disposition home or self-care (01) ==
PROVIDERS: Emergency Provider Physician Assistant; PCP Electrodiagnostic Medicine
DX: S61.011A Laceration without foreign body of right thumb without damage to nail, initial encounter (principal); W26.8XXA Contact with other sharp object(s), not elsewhere classified, initial encounter; F17.210 Nicotine dependence, cigarettes, uncomplicated; F12.90 Cannabis use, unspecified, uncomplicated
CPT/HCPCS: 12002; 73130; 90471; 90715; 99283; J9999